=== PATIENT | female | born 1990 | race Caucasian/White ===

== ENCOUNTER 2017-03-15 12:42 | Emergency (ER) | payer OTHER ==
--- NOTE | 2017-03-15 12:59 | ER Document Report ---
ED Medical Screen (RME) - General Chief Complaint: Vaginal Bleeding Stated Complaint: VAGINAL BLEEDING Time Seen by Provider: 03/15/17 12:53 Notes: 26-year-old female patient who is A0 stated she was 3-4 weeks when she had a miscarriage at home on 03/09/2017. She reports she had bleeding through and it stopped. Today she is having heavy bleeding and cramping. I have greeted and performed a rapid initial assessment of this patient. A comprehensive ED assessment and evaluation of the patient, analysis of test results and completion of the medical decision making process will be conducted by additional ED providers. TRAVEL OUTSIDE OF THE [place] IN LAST 30 DAYS: No - Related Data Allergies/Adverse Reactions: No Known Allergies Allergy (Unverified 03/15/17 12:47) Past Medical History - Social History Frequency of alcohol use: Once a week, 4-5 drinks Drug Abuse: None Renal/ Medical History: Denies: Hx Peritoneal Dialysis Psychiatric Medical History: Reports: Hx Depression Past Surgical History: Reports: Hx Oral Surgery - [place] Teeth, Hx Orthopedic Surgery - Right Foot Physical Exam - Vital signs Vitals: Temp Pulse Resp BP Pulse Ox 98.5 F 98 20 122/74 99 03/15/17 12:46 03/15/17 12:46 03/15/17 12:46 03/15/17 12:46 03/15/17 12:46 Course - Vital Signs Vital signs: Temp Pulse Resp BP Pulse Ox 98.5 F 98 20 122/74 99 03/15/17 12:46 03/15/17 12:46 03/15/17 12:46 03/15/17 12:46 03/15/17 12:46
[2017-03-15 13:19] LABS: ABSOLUTE BASOPHILS # (AUTO) 0.1 10^3/uL (0.0-0.2); ABSOLUTE EOSINOPHILS # (AUTO) 0.1 10^3/uL (0.0-0.6); ABSOLUTE LYMPHOCYTES (AUTO) 2.5 10^3/uL (0.5-4.7); ABSOLUTE MONOCYTES (AUTO) 0.9 10^3/uL (0.1-1.4); ABSOLUTE NEUT (AUTO) 6.9 10^3/uL (1.7-8.2); BASOPHILS % (AUTO) 0.5 % (0-2); EOSINOPHILS % (AUTO) 0.8 % (0-6); HEMATOCRIT 42.3 % (36.0-47.0); HEMOGLOBIN 14.6 g/dL (12.0-15.5); HGB HCT DIFFERENCE 1.5; LYMPHOCYTES % (AUTO) 23.8 % (13-45); MEAN CORPUSCULAR HEMOGLOBIN 29.5 pg (27.0-33.4); MEAN CORPUSCULAR HGB CONC 34.6 g/dL (32.0-36.0); MEAN CORPUSCULAR VOLUME 85 fl (80-97); MONOCYTES % (AUTO) 8.6 % (3-13); RED BLOOD COUNT 4.96 10^6/uL (3.72-5.28); RED CELL DISTRIBUTION WIDTH 14.1 % (11.5-14.0); SEGMENTED NEUTROPHILS % (AUTO) 66.3 % (42-78); WHITE BLOOD COUNT 10.5 10^3/uL (4.0-10.5)
--- NOTE | 2017-03-15 13:55 | ER Document Report ---
ED GI/ - General Chief Complaint: Vaginal Bleeding Stated Complaint: VAGINAL BLEEDING Time Seen by Provider: 03/15/17 12:53 Notes: 26-year-old female who presents today status post vaginal bleeding starting on Thursday. She states she was 3 weeks at that time with her second . Patient is a 001. Patient states she started to have some repeat bleeding with large clots today. She denies any fevers, dysuria, or vomiting. She denies any flank pain. She does state some mild bilateral lower back pain. She denies any weakness or numbness to her legs. TRAVEL OUTSIDE OF THE [place] IN LAST 30 DAYS: No - HPI Patient complains to provider of: Other - See above Onset: Other - See above Timing/Duration: Gradual Quality of pain: Achy Severity at maximum: Moderate Severity in ED: Mild Pain Level: 1 Location: Suprapubic Vaginal bleeding (Compared to normal period): Passing clots, Passing tissue Menstrual period history: Abnormal Sexual history: Active Associated symptoms: Other Exacerbated by: Denies Relieved by: Denies Similar symptoms previously: No Recently seen / treated by doctor: No - Related Data Allergies/Adverse Reactions: No Known Allergies Allergy (Unverified 03/15/17 12:47) Past Medical History - General Information source: Patient - Social History Smoking Status: Current Every Day Smoker Cigarette use (# per day): No Chew tobacco use (# tins/day): No Smoking Education Provided: No Frequency of alcohol use: Once a week, 4-5 drinks Drug Abuse: None Family History: Reviewed & Not Pertinent Renal/ Medical History: Denies: Hx Peritoneal Dialysis Psychiatric Medical History: Reports: Hx Depression Past Surgical History: Reports: Hx Oral Surgery - [place] Teeth, Hx Orthopedic Surgery - Right Foot Review of Systems - Review of Systems Constitutional: denies: Fever Cardiovascular: denies: Chest pain Respiratory: denies: Cough Gastrointestinal: denies: Diarrhea, Vomiting Genitourinary: denies: Burning, Dysuria Musculoskeletal: Back pain Neurological/Psychological: denies: Weakness -: Yes All other systems reviewed and negative Physical Exam - Vital signs Vitals: Temp Pulse Resp BP Pulse Ox 98.5 F 98 20 122/74 99 03/15/17 12:46 03/15/17 12:46 03/15/17 12:46 03/15/17 12:46 03/15/17 12:46 Notes: Reviewed vital signs and nursing note as charted by RN. CONSTITUTIONAL: Alert and oriented and responds appropriately to questions. Well -appearing; well-nourished HEAD: Normocephalic; atraumatic EYES: Sclerae non-icteric CARD: Regular rate and rhythm; no murmurs RESP: Normal chest excursion without splinting or tachypnea ABD/GI: Normal bowel sounds; non-distended; soft, mildly tender to suprapubic region without any rebound or guarding BACK: The back appears normal and is non-tender to palpation, there is no CVA tenderness EXT: Normal ROM in all joints; non-tender to palpation; no cyanosis, no effusions, no edema SKIN: Normal color for age and race; warm; dry; good turgor; capillary refill < 2 seconds; no acute lesions noted NEURO: Moves all extremities equally; Motor and sensory function intact PSYCH: The patient's mood and manner are appropriate. Grooming and personal hygiene are appropriate. Course - Re-evaluation Re-evalutation: 03/15/17 13:55 Given the above history and physical examination we will order urinalysis, quantitative hCG, hemoglobin level, pelvic examination, and a transvaginal ultrasound. We would like to ensure full evacuation of the uterine cavity with no obvious retained products as well as to make sure there are no obvious cervical or vaginal lacerations present. 03/15/17 16:50 Labs as recorded. Hemoglobin is stable. Ultrasound as recorded. I called and spoke directly to the radiologist Dr. Suárez. He states he sees no adnexal masses. He does state he cannot visualize the ovaries. Patient denies any and all abdominal pain at this time. Pelvic examination shows no external lesions. Patient does have some clots in the vaginal vault. No active hemorrhaging. I am able to place my finger tip inside the cervical office. I have called and spoke to the on-call [facility] [employer], Dr. Arnoldo Fountain. I have explained the full history and physical, ultrasound results, quantitative hCG, and pelvic examination. He does not believe any acute intervention is necessary at this time. He states he will be able to see the patient in follow- up in his office. We are awaiting blood type. - Vital Signs Vital signs: Temp Pulse Resp BP Pulse Ox 98.5 F 98 20 122/74 99 10/22/17 12:46 03/15/17 12:46 03/15/17 12:46 03/15/17 12:46 03/15/17 12:46 - Laboratory Result Diagrams: 03/15/17 13:03 Laboratory results interpreted by me: 03/15/17 03/15/17 13:03 13:03 RDW 14.1 H Beta HCG, Quant 8152.60 H Discharge - Discharge Clinical Impression: Incomplete miscarriage with blood clot Condition: Good Disposition: HOME, SELF-CARE Additional Instructions: Come back immediately with any increased bleeding, lightheadedness or dizziness , abdominal pain, fever, or any other acute problems. Please make sure that you follow-up with the [facility] [employer] that we have referred you to as we have discussed by calling his office Thursday morning and telling them that you were seen in the emergency department yesterday and you were told to follow-up on Thursday. Referrals: FLORECITA RAMOS MD [Primary Care Provider] - Follow up as needed MARCIN FOUNTAIN MD [ACTIVE STAFF] - Follow up as needed
--- NOTE | 2017-03-15 16:30 | RADIOLOGY REPORT (SQ) ---
EXAM DESCRIPTION: U/S OB TRANSVAGINAL W/O DOP COMPLETED DATE/TIME: 03/15/2017 4:15 pm REASON FOR STUDY: had ?AB (3-4wk) at home 03/09/2017, heavy beeding COMPARISON: None. TECHNIQUE: Transvaginal static and realtime grayscale images acquired of the pelvis. Additional hi cted spectral and color Doppler images recorded. All images stored on PACs. [facility] [email or web address] LIMITATIONS: None. FINDINGS: FETUS: Irregular shaped gestational sac noted the lower uterine segment/ cervix consisten t approximately a of 6 weeks 1 day. Gestational sac measures approximate 1.3 cm EGA: Above NOAH: NA FHR: NA SUBCHORIONIC BLEED: No. SIZE OF BLEED: Not applicable. UTERUS: No masses. No anomalies. CERVICAL LENGTH: 3.4 cm RIGHT ADNEXA: Ovary not identified. No adnexal free fluid. No adnexal masses. LEFT ADNEXA: Ovary not identified. No adnexal free fluid. No adnexal masses. FREE FLUID: None. OTHER: No other significant finding. IMPRESSION: There is irregularity presumed gestational sac seen in the lower uterine segment/cervix consistent of 6 weeks 1 day. No other significant abnormality identified. Ovaries not vis ualized on this study. Trimester of : First - 0 to 13 weeks. TECHNICAL DOCUMENTATION: JOB ID: [id number] [employer]- All Rights Reserved
[2017-03-15 17:56] VITALS: BP 123/69
[2017-03-15 18:29] LABS: CHLAM PCR NOT DETECTED (NOT DETECT)
== END 2017-03-15 17:57 | disposition home or self-care (01) ==
LOC: ER 12:42
DX: O03.1 Delayed or excessive hemorrhage following incomplete spontaneous abortion (principal); F17.200 Nicotine dependence, unspecified, uncomplicated; M54.5 Low back pain
CPT/HCPCS: 36415; 76817; 84702; 85025; 86900; 86901; 87210; 87491; 87591; 99284